=== PATIENT | female | born 1985 | race Caucasian/White ===

== ENCOUNTER 2018-10-08 17:24 | Emergency (ER) | END 2018-10-08 20:00 | disposition home or self-care (01) ==

== ENCOUNTER 2018-10-11 10:52 | Emergency (ER) | END 2018-10-11 17:38 | disposition home or self-care (01) ==

== ENCOUNTER 2019-07-07 11:03 | Emergency (ER) | payer OTHER ==
[~2019-07-07] VITALS: Ht 160 cm; Wt 90.0 kg
[~2019-07-07 11:03] MED LIST: GLYB2.5T2 PO; METF750T PO; MTF1000T PO
[2019-07-07 11:04] VITALS: BP 142/72; PULSE 73; RESP 18; Ht 160 cm; Wt 90.0 kg
== END 2019-07-07 13:28 | disposition home or self-care (01) ==
LOC: FTE 11:03
DX: M54.2 Cervicalgia (principal)
CPT/HCPCS: 72040; 81003; 81025; 82962; Z7502

== ENCOUNTER 2019-07-23 11:14 | Emergency (ER) | payer OTHER ==
[~2019-07-23] VITALS: Ht 162.6 cm; Wt 91.4 kg
[2019-07-23 11:20] VITALS: BP 116/68; PULSE 80; RESP 18; Ht 162.6 cm; Wt 91.4 kg
== END 2019-07-23 13:43 | disposition home or self-care (01) ==
LOC: FTE 11:14
DX: Z79.84 Long term (current) use of oral hypoglycemic drugs (principal); Z3A.08 8 weeks gestation of pregnancy
CPT/HCPCS: 36415; 76801; 76817; 81001; 84702; 85025; 86900; 86901; Z7502